=== PATIENT | female | born 1990 | race Caucasian/White ===

== ENCOUNTER 2021-04-22 16:33 | Emergency (ER) | payer OTHER ==
[2021-04-22 18:20] LABS: BASOPHIL 0.5 % (0-2); BILIRUBIN 1+ mg/dL (NEGATIVE); BLOOD NEGATIVE Ery/uL (NEGATIVE); CLARITY CLEAR (CLEAR); COLOR YELLOW (YELLOW); EOSINOPHIL 0.1 % (0-5); GLUCOSE (U) NORMAL (NORMAL); HCT 39.2 % (37.0-47.0); HGB 12.8 g/dl (12.5-16.0); LEUKOCYTES NEGATIVE Leu/uL (NEGATIVE); LYMPHOCYTE 3.9 % (15-48); MCH 25.8 pg (25.0-31.0); MCHC 32.7 g/dL (32.0-36.0); MONOCYTE 2.4 % (0-12); NITRITE NEGATIVE (NEGATIVE); NRBC 0; PLT 287 K/uL (150-400); PROTEIN TRACE (LOW) mg/dL (NEGATIVE); RBC 4.96 M/uL (4.20-5.40); RDW 15.7 % (11.5-14.0); SPECIFIC GRAVITY >=1.030 (1.001-1.030); UROBILINOGEN 0.2 mg/dL (0.2-1.0); WBC 15.7 K/uL (4.0-10.5)
[2021-04-22 18:21] LABS: NEUTROPHIL 92.7 % (41-80)
[2021-04-22 18:26] LABS: AMPHETAMINES POSITIVE (NEGATIVE); BARBITURATES NEGATIVE (NEGATIVE); ECSTASY (MDMA) POSITIVE (NEGATIVE); MARIJUANA (THC) POSITIVE (NEGATIVE); METHADONE NEGATIVE (NEGATIVE); OPIATES NEGATIVE (NEGATIVE)
[2021-04-22 18:27] LABS: OXYCODONE NEGATIVE (NEGATIVE)
[2021-04-22 18:35] LABS: ALBUMIN 4.6 g/dL (3.4-5.0); BILIRUBIN - TOTAL 0.6 mg/dL (0.2-1.0); BUN/CREAT RATIO (CALC) 16.7 RATIO; CREATININE 0.54 mg/dL (0.51-0.95); GLOBULIN (CALCULATION) 3.5 g/dL; POTASSIUM 3.4 mmol/L (3.5-5.1); TOTAL PROTEIN 8.1 g/dL (6.4-8.2)
[2021-04-22 18:46] LABS: BAND 6 % (0-10); BASOPHIL(M) 0 % (0-2); EOSINOPHIL(M) 0 % (0-5); LYMPHOCYTE(M) 6 % (15-48); MONOCYTE(M) 2 % (0-12); NEUTROPHILS(M) 86 % (41-80); PLATELETS ON SMEAR ADEQUATE; VARIANT LYMPHOCYTE 0
[2021-04-22] MEDS ORDERED: REGLAN10 MG PO (21:06)
== END 2021-04-22 21:50 | disposition home or self-care (01) ==
LOC: FER 16:33
PROVIDERS: Physician Assistant
DX: O26.891 Other specified pregnancy related conditions, first trimester (principal); O99.321 Drug use complicating pregnancy, first trimester; R11.2 Nausea with vomiting, unspecified; F19.10 Other psychoactive substance abuse, uncomplicated; Z88.0 Allergy status to penicillin; Z3A.08 8 weeks gestation of pregnancy
CPT/HCPCS: 36415; 76817; 80053; 80305; 81003; 83690; 84702; 84703; 85025; J1200; J2405; J2765; J7030